=== PATIENT | female | born 1950 | race Caucasian/White ===

== ENCOUNTER → 2017-01-18 | Outpatient (CLI) | payer BC ==
[~2017-01-18] MED LIST: ATACAND PO; CALCIUM + D PO; CRESTOR PO; DARVOCET-N 1001 TAB PO; MAGNESIUM PO; MOBIC PO; NEXIUM PO; ROBAXIN PO; ULTRAM ER100 MG PO; ULTRAM PO; VITAMIN D PO
--- NOTE | ~2017-01-18 | MR191 ---
[facility] A Service of [facility] & [facility] RADIOLOGY TEXT RESULTS PATIENT: DAVID LOBATO LOCATION: [facility] : 52 UNIT #: [id number] AGE: [address]: Andry Keller MD SEX: F ORDER DR: [id number] [facility] [address] [facility]. [place], [place] [address] [id number] O MR#: [id number] Acc #: [id number] NAME: DAVID LOBATO : 1950 SEX: F STUDY DATE/TIME: 01/18/2017 14:02 UNIT: [facility] ROOM: STUDY DESCRIPTION: MR Shoulder Arthrogram Rt Attending Physician: Lars Keller M.D. Referring Physician: Lars Keller M.D. Ordering Physician: Lars Keller M.D. Primary Care Physician: Toy Gonzalez M.D. MRI CENTER REPORT This report is preliminary unless electronic signature is present. EXAM Right shoulder MRI arthrogram, 01/18/2017 HISTORY 66-year-old female with right shoulder pain and decreased range of motion since August 2016. No specific injury. No prior right shoulder surgery. COMPARISON Right shoulder MRI 01/04/2017. Conventional right shoulder arthrogram 01/18/2017. TECHNIQUE Routine unenhanced multiplanar, multisequence high-field MR imaging of the right shoulder was performed following the intraarticular administration of dilute gadolinium. FINDINGS There is again noted moderate to severe supraspinatus and infraspinatus tendinopathy. There is high-grade thinning of the preinsertional supraspinatus tendon. There is contrast noted in the subacromial/subdeltoid bursa, which may communicate through a small full-thickness perforation in the supraspinatus tendon as well as likely communication through the rotator interval of the shoulder. There is no evidence of a high-grade retracted full-thickness rotator cuff tear. Teres minor and subscapularis tendons remain intact. The long biceps tendon is intact and well positioned in the bicipital groove. There is mild superior labral degeneration without evidence of a displaced tear. Remainder of the glenoid labrum is intact. Glenohumeral articular cartilage is intact. No loose intraarticular bodies. There are moderate degenerative changes of the acromioclavicular joint again noted. Mild reactive marrow edema in the distal clavicle and mild STS. [facility] A Service of [facility] & [facility] RADIOLOGY TEXT RESULTS PATIENT: DAVID LOBATO LOCATION: [facility] : 51 UNIT #: [id number] AGE: [address]: Andry Keller MD SEX: F ORDER DR: periarticular soft tissue edema again suggests a mild active inflammatory component. No subacromial spur. Remainder of the bone marrow signal is within expected limits. There is again noted diffuse fatty atrophy of the infraspinatus muscle. This is nonspecific and may be secondary to chronic denervation. IMPRESSION 1. Moderate to severe supraspinatus and infraspinatus tendinopathy again noted. There is high-grade thinning of the preinsertional supraspinatus tendon. There is contrast noted in the subacromial/subdeltoid bursa, which likely communicates through the rotator interval. There may be a very small full-thickness perforation in the preinsertional supraspinatus tendon, but no evidence of a high-grade retracted full-thickness rotator cuff tear. 2. Mild superior labral degeneration. No evidence of a displaced labral tear. 3. Moderate acromioclavicular joint arthrosis with evidence of a mild active inflammatory component. This is similar in appearance to prior exam. 4. Fatty atrophy of the infraspinatus muscle, unchanged from prior exam. This may represent the sequelae of chronic denervation. Dictated by... John Graham M.D. THIS IS AN ELECTRONICALLY VERIFIED REPORT John Graham M.D. at 01/22/2017 4:46 PM RODRIGO/crystal TD: 01/22/2017 03:25 JOB #: [id number] MRI CENTER REPORT COPY
--- NOTE | ~2017-01-18 | XA35 ---
[facility] A Service of [facility] & [facility] RADIOLOGY TEXT RESULTS PATIENT: DAVID LOBATO LOCATION: [facility] : 52 UNIT #: [id number] AGE: [address]: Andry Keller MD SEX: F ORDER DR: [id number] [facility]. [place], [place] [address] [id number] O MR#: [id number] Acc #: [id number] NAME: DAVID LOBATO. : 1950 SEX: F STUDY DATE/TIME: 01/18/2017 13:40 [facility] ROOM: STUDY DESCRIPTION: XA Arthrogram Shoulder Rt Attending Physician: Lars Keller M.D. Referring Physician: Lars Keller M.D. Ordering Physician: Lars Keller M.D. Primary Care Physician: Toy Gonzalez M.D. MEDICAL IMAGING REPORT This report is preliminary unless electronic signature is present EXAM Right shoulder arthrogram INDICATION Persistent right shoulder pain. No known trauma. This pain is increased since August of 2016. She did have an unenhanced MRI performed on 01/07/2017. PROCEDURE The risks, benefits, and alternatives to the procedure were explained to the patient, and signed, informed consent was obtained. She was placed supine on the angiographic table and prepped and draped in the usual sterile fashion. Time-out was performed as per protocol skin and subcutaneous tissues were anesthetized with buffered lidocaine and a 22-gauge spinal needle was advanced into the joint space contrast was injected which confirmed location within the joint space and a total of 3 fluoroscopic images were obtained. Needle was removed and manual pressure was applied until hemostasis was obtained. Patient tolerated procedure well and there were no immediate complications. Total fluoroscopy time was 0.8 minutes and AK is 14 mGy. IMPRESSION Technically successful fluoroscopically-guided right shoulder arthrogram as noted above. Please see the MRI of the report for a full description of findings within the joint. Dictated by... Savannah Petersen M.D. THIS IS AN ELECTRONICALLY VERIFIED REPORT Savannah Petersen M.D. at 01/24/2017 1:16 PM AFF/rnr [facility] A Service of [facility] & [facility] RADIOLOGY TEXT RESULTS PATIENT: DAVID LOBATO LOCATION: [facility] : 51 UNIT #: [id number] AGE: [address]: Andry Keller MD SEX: F ORDER DR: TD: 01/19/2017 05:25 JOB #: [id number] MEDICAL IMAGING REPORT COPY
== END | disposition home or self-care (01) ==
LOC: CIVR 13:13
DX: M67.813 Other specified disorders of tendon, right shoulder (principal); M75.81 Other shoulder lesions, right shoulder; M19.011 Primary osteoarthritis, right shoulder; M62.511 Muscle wasting and atrophy, not elsewhere classified, right shoulder
CPT/HCPCS: 73040; 73222; 77002; A9577; Q9967